=== PATIENT | female | born 1965 | race Caucasian/White ===

== ENCOUNTER 2017-02-24 12:23 | Day surgery (SDC) | payer OTHER ==
[~2017-02-24] VITALS: Ht 165.1 cm; Wt 65.8 kg
[~2017-02-24 12:23] MED LIST: FLUT9.9S NS; MELO-259 PO; Sodium Chloride LOK Flush 10 mL Syringe IV PRN; fentaNYL-PF 50 mCg/mL 2 mL Inj IVPUSH PRN
[2017-02-24 13:02] VITALS: BP 131/81; PULSE 49; RESP 16; O2SAT 99
[2017-02-24] MEDS: 0.9% Sodium Chloride 1,000 ML IV SCH ×2 (13:09→13:44)
[2017-02-24 14:00] VITALS: BP 114/74; PULSE 52; RESP 12; O2SAT 99
--- NOTE | 2017-02-24 14:01 | PCM.ENDCOL ---
Colonoscopy Date of Service: Feb 24, 2017 Physician Kee Betancourt MD Pre Procedure Diagnosis: Screening Post Procedure Dx & Findings: Polyp hemorrhoids Procedure Colonoscopy PROCEDURE IN DETAIL: Prep adequate Withdrawal time 13 minutes After unremarkable rectal examination the Olympus video colonoscope was inserted patient's anal canal and was advanced to cecum. Landmarks were identified including the ileocecal valve and appendiceal orifice. Scope was withdrawn systematically. Visualized colonic mucosa showed healthy shiny mucosa with normal healthy-appearing vasculature. There was a 1 mm polyp in the rectosigmoid junction. This was removed completely using cold forceps. In the rectum retroflexion was done which showed hemorrhoids. Anal canal was inspected carefully on the way out and hemorrhoids noted. Impression Polyp 1 status post complete removal Hemorrhoids Recommendation Repeat colonoscopy 5 years Presedation Assessment Risks and Benefits Informed consent was obtained from the patient after all risks and benefits including but not limited to drug reaction, infection, pain, bleeding, perforation, as well as alternatives were discussed. Patient monitoring Continuous pulse oximetry, cardiac monitoring, blood pressure monitoring, IV access, and oxygen at 2L per nasal cannula. Periprocedural Fentanyl: Fentanyl 75mcg Incrementally Midazolam: Midazolam 4mg Incrementally Complications There were no periprocedural complications identified. Post Procedure Plan Post Procedure Recommendations 1. Restrict activities today. 2. Resume normal activities in the morning. 3. Resume medications. 4. Patient informed of normal post procedure side effects as bloating, drowsiness, blood streaking in the stool. 5. average risk CRCS. If colon polyps come back as: -Hyperplastic- can repeat colonoscopy in 10 years -Tubular adenoma- repeat colonoscopy in 5 years -Tubulovillous/villous adenoma- repeat colonoscopy in 3 years -If any dysplasia- return to clinic as soon as possible 6. Please don't hesitate to call me with any questions. Kee Betancourt MD Feb 24, 2017 14:01
[2017-02-24 14:18] VITALS: BP 114/69; PULSE 59; RESP 12; O2SAT 100
--- NOTE | 2017-03-03 10:22 | PATH ---
SURGICAL PATHOLOGY Attending Physician:Kee Betancourt M.D. CASE STATUS: Signed Out PATIENT NAME: LAYA MENDES PID: [id number] : 1965 DATE COLLECTED:02/24/2017 00:00 SPECIMEN: Colon, Biopsy CLINICAL HISTORY: 1). RECTO-SIGMOID POLYP FINAL DIAGNOSIS: Rectosigmoid Colon, Polyp, Biopsy: Portions of hyperplastic polyp x 2. ICD10: K63.5 GROSS DESCRIPTION: The specimen is received in one formalin filled container labeled with the patient's name, sublabeled "recto-sigmoid polyp" and consists of 2 portions of tissue which aggregate to 0.3 x 0.2 x 0.2 CM. The specimen is entirely submitted in one cassette. 02/25/2017 [facility] ICD-9 CODES: CPT CODES: 1: 71779 Electronically Signed Out Brenna Rosen MD [facility] Pathology [facility] [address], [place] [address] Technical component performed at [facility], [address] [place] [address] Ave[address], [place], [address]
== END 2017-02-24 23:59 | disposition home or self-care (01) ==
LOC: END 12:23
PROVIDERS: ATTEND Internal Medicine
DX: Z12.11 Encounter for screening for malignant neoplasm of colon (principal); K63.5 Polyp of colon; K64.9 Unspecified hemorrhoids; M75.21 Bicipital tendinitis, right shoulder
CPT/HCPCS: 45380; 99152; 99153; J2250; J3010; J7030